=== PATIENT | male | born 1985 | race Caucasian/White ===

== ENCOUNTER 2017-03-06 12:20 | Emergency (ER) | payer OTHER | END 2017-03-06 13:47 | disposition home or self-care (01) | DX: S67.191A Crushing injury of left index finger, initial encounter (principal); X58.XXXA Exposure to other specified factors, initial encounter; Y92.017 Garden or yard in single-family (private) house as the place of occurrence of the external cause; K58.9 Irritable bowel syndrome, unspecified; R03.0 Elevated blood-pressure reading, without diagnosis of hypertension; F17.200 Nicotine dependence, unspecified, uncomplicated ==

== ENCOUNTER 2018-08-12 10:36 | Outpatient (CLI) | payer OTHER ==
[2018-08-12] MEDS ORDERED: IOTHALAMATE MEGLUMINE 50 ML VIAL ONE (11:41)
[2018-08-12] MEDS ORDERED: GADOPENTETATE DIMEGLUMINE 5 ML VIAL IVP ONE (11:41)
--- NOTE | 2018-08-14 11:04 | MRI Report ---
Reason: PAIN LEFT KNEE Procedure Date: 08/12/2018 Accession Number: [id number] / [id number] Procedure: MRI - Knee LT W/O CPT Code: FULL RESULT: EXAM: LEFT KNEE MRI WITHOUT CONTRAST EXAM DATE: 08/12/2018 12:41 PM. CLINICAL HISTORY: Pain left knee. COMPARISON: None. TECHNIQUE: Multiplanar, multisequence T1-weighted and fluid-sensitive sequences of the knee without contrast. Other: None. FINDINGS: Bones: No fractures or subluxations. No marrow edema. No bone lesions. Articular Cartilage: Focal full-thickness defect lateral patellar facet articular cartilage (image 22 series 401). The trochlear groove articular cartilage is unremarkable. The tibiofemoral compartment articular cartilage is negative for fluid signal defect. Mild chondromalacia medial tibiofemoral compartment. Medial Meniscus: The medial meniscus is intact. Lateral Meniscus: The lateral meniscus is intact. Cruciate Ligaments: The anterior and posterior cruciate ligaments are intact. Collateral Ligaments: The medial collateral and lateral collateral ligamentous structures are intact. Tendons: The quadriceps, patellar, semimembranosus, and popliteus tendons are unremarkable. Musculature: No edema or fatty atrophy. Other: Small lateral patellar recess fluid. No popliteal cyst. No loose bodies. The medial and lateral retinacula are intact. The subcutaneous tissues and fat pads are unremarkable. IMPRESSION: 1. Negative for meniscus tear or internal derangement. 2. Focal cleft or full-thickness articular cartilage defect lateral patellar facet. [facility]CULOS[facility] SECTION
== END 2018-08-12 10:37 | disposition home or self-care (01) ==
LOC: DI 10:36
PROVIDERS: ATTEND General Practice
DX: M25.562 Pain in left knee (principal)

== ENCOUNTER 2018-08-19 10:14 | Emergency (ER) | payer OTHER ==
[2018-08-19 10:50] VITALS: BP 117/66
== END 2018-08-19 11:26 | disposition left against medical advice (07) ==
LOC: ED 10:14
DX: Z53.21 Procedure and treatment not carried out due to patient leaving prior to being seen by health care provider (principal)

== ENCOUNTER 2018-11-08 22:22 | Emergency (ER) | payer OTHER ==
[2018-11-08 22:39] VITALS: BP 131/92
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
[2018-11-08] MEDS ORDERED: CYCLOBENZAPRINE 10 MG Prepack 2 PO PRN (23:22)
== END 2018-11-08 23:30 | disposition home or self-care (01) ==
LOC: ED 22:22
DX: S39.012A Strain of muscle, fascia and tendon of lower back, initial encounter (principal); V89.2XXA Person injured in unspecified motor-vehicle accident, traffic, initial encounter; F17.200 Nicotine dependence, unspecified, uncomplicated
CPT/HCPCS: 99282; 99283

== ENCOUNTER 2019-10-22 01:13 | Emergency (ER) | payer OTHER ==
[2019-10-22 01:41] LABS: BASOPHILS % (AUTO) 0.3 %; EOSINOPHILS # (AUTO) 0.1 10^3/uL (0.0-0.7); HGB - HEMOGLOBIN 16.5 g/dL (14.0-18.0); LYMPHOCYTES # (AUTO) 1.7 10^3/uL (1.5-3.5); LYMPHOCYTES % (AUTO) 13.7 %; MEAN CORPUSCULAR HEMOGLOBIN 31.4 pg (27.0-31.0); MEAN CORPUSCULAR HGB CONC 33.5 g/dL (32.0-36.0); MEAN CORPUSCULAR VOLUME 93.5 fL (80.0-94.0); MONOCYTES # (AUTO) 1.4 10^3/uL (0.0-1.0); MONOCYTES % (AUTO) 11.3 %; NEUTROPHILS % (AUTO) 73.3 %; PLT - PLATELET COUNT 248 10^3/uL (130-450); RED BLOOD COUNT 5.26 10^6/uL (4.70-6.10); RED CELL DISTRIBUTION WIDTH 12.7 % (12.0-15.0); WHITE BLOOD COUNT 12.3 x10^3/uL (4.8-10.8)
[2019-10-22] MEDS ORDERED: MORPHINE 2 MG/ML CARPUJECT IVP STA (01:48)
[2019-10-22] MEDS ORDERED: ONDANSETRON 4 MG/2 ML VIAL IVP STA (01:48)
[2019-10-22 02:01] LABS: ALBUMIN 3.9 g/dL (3.2-5.5); ALBUMIN/GLOBULIN RATIO 1.2 (1.0-2.2); BILIRUBIN,TOTAL 1.1 mg/dL (0.2-1.0); CALCIUM 8.7 mg/dL (8.5-10.3); CREATININE 0.9 mg/dL (0.6-1.2); TOTAL PROTEIN 7.2 g/dL (6.7-8.2)
[2019-10-22] MEDS ORDERED: HYDROmorphone 1 MG/ML CARPUJECT IVP STA (02:26)
[2019-10-22 02:35] LABS: BILIRUBIN,URINE NEGATIVE (NEGATIVE); GLUCOSE, URINE (UA) NEGATIVE (NEGATIVE); KETONES,URINE (UA) NEGATIVE (NEGATIVE); LEUKOCYTE ESTERASE, URINE NEGATIVE (NEGATIVE); NITRITE,URINE NEGATIVE (NEGATIVE); OCCULT BLOOD,URINE NEGATIVE (NEGATIVE); PROTEIN,URINE NEGATIVE (NEGATIVE); UROBILINOGEN,URINE 0.2 (NORMAL) E.U./dL (NORMAL)
[2019-10-22 02:36] LABS: CLARITY,URINE CLEAR (CLEAR)
[2019-10-22] MEDS ORDERED: IOVERSOL 320 100 ML VIAL IVP ONE ×2 (02:44→03:26)
--- NOTE | 2019-10-22 02:55 | ED Physician Documentation ---
PD HPI ABD PAIN - Stated complaint Stated Complaint: ABD PX - Chief complaint Chief Complaint: Abd Pain - History obtained from History obtained from: Patient, Family Review of Systems Ten Systems: 10 systems reviewed and negative Constitutional: denies: Fever Nose: reports: Reviewed and negative Throat: reports: Reviewed and negative GI: reports: Abdominal Pain, Nausea. denies: Abdominal Swelling, Vomiting, Constipation, Diarrhea, Hematemesis, Bloody / black stool : reports: Reviewed and negative. denies: Dysuria, Hematuria Skin: reports: Reviewed and negative Musculoskeletal: denies: Back pain Neurologic: reports: Reviewed and negative Endocrine: reports: Reviewed and negative Immunocompromised: reports: Reviewed and negative PD PAST MEDICAL HISTORY - Past Medical History Past Medical History: Yes Cardiovascular: None Respiratory: None Neuro: None Endocrine/Autoimmune: None GI: Other : None HEENT: None Psych: None Musculoskeletal: None Derm: None - Past Surgical History Past Surgical History: No - Present Medications Home Medications: Ambulatory Orders Medication Instructions Recorded Confirmed Loperamide [Imodium] 2 mg PO QID PRN 02/01/16 03/06/17 Cyclobenzaprine [Flexeril] 10 mg PO TID PRN #20 tablet 11/08/18 Hydrocodone/Acetaminophen 1 - 2 each PO Q6H PRN #14 tablet 10/22/19 [Hydrocodon-Acetaminophen 5-325] Ondansetron Odt [Zofran] 4 mg TL Q6H PRN #10 tablet 10/22/19 - Allergies Allergies/Adverse Reactions: Allergies Allergy/AdvReac Type Severity Reaction Status Date / Time No Known Drug Allergies Allergy Verified 10/22/19 01:20 - Social History Does the pt smoke?: Yes Smoking Status: Current every day smoker Does the pt drink ETOH?: Yes Does the pt have substance abuse?: No - Immunizations Immunizations are current?: Yes - POLST Patient has POLST: No PD ED PE NORMAL - Vitals Vital signs reviewed: Yes - General General: Alert and oriented X 3, Well developed/nourished, Other (appears uncomfortable) - HEENT HEENT: Atraumatic, Moist mucous membranes, Pharynx benign - Neck Neck: Supple, no meningeal sign, No JVD - Cardiac Cardiac: RRR, No murmur, No gallop, No rub, Strong equal pulses - Respiratory Respiratory: No respiratory distress, Clear bilaterally - Abdomen Abdomen: Soft, Non distended - Male Male : Deferred - Rectal Rectal: Deferred - Derm Derm: Normal color, No rash - Extremities Extremities: No deformity, No edema - Neuro Neuro: Alert and oriented X 3, Normal speech Eye Opening: Spontaneous Motor: Obeys Commands Verbal: Oriented GCS Score: 15 - Psych Psych: Normal mood, Normal affect PD ED PE EXPANDED - Abdomen Abdomen: Tender to palpation (mild diffuse tenderness ). No: Rebound, Guarding Results - Vitals Vitals: Vital Signs - 24 hr 10/22/19 10/22/19 10/22/19 01:15 03:19 04:13 Temperature 37.1 C 37.0 C Heart Rate 96 88 80 Respiratory 16 14 16 Rate Blood Pressure 126/65 135/72 H 127/78 O2 Saturation 97 98 97 Oxygen O2 Source Room air - Labs Labs: Laboratory Tests 10/22/19 10/22/19 10/22/19 01:30 01:40 02:25 WBC 12.3 H RBC 5.26 Hgb 16.5 Hct 49.2 MCV 93.5 MCH 31.4 H MCHC 33.5 RDW 12.7 Plt Count 248 MPV 10.0 Neut # (Auto) 9.0 H Lymph # (Auto) 1.7 [place] # (Auto) 1.4 H Eos # (Auto) 0.1 Baso # (Auto) 0.0 Absolute Nucleated RBC 0.00 Nucleated RBC % 0.0 Sodium 138 Potassium 4.3 Chloride 103 Carbon Dioxide 29 Anion Gap 6.0 BUN 13 Creatinine 0.9 Estimated GFR (MDRD) 95 Glucose 125 H Calcium 8.7 Total Bilirubin 1.1 H AST 15 ALT 32 Alkaline Phosphatase 61 Total Protein 7.2 Albumin 3.9 Globulin 3.3 Albumin/Globulin Ratio 1.2 Lipase 53 H Urine Color YELLOW Urine Clarity CLEAR Urine pH 6.0 Ur Specific [place] <=1.005 Urine Protein NEGATIVE Urine Glucose (UA) NEGATIVE Urine Ketones NEGATIVE Urine Occult Blood NEGATIVE Urine Nitrite NEGATIVE Urine Bilirubin NEGATIVE Urine Urobilinogen 0.2 (NORMAL) Ur Leukocyte Esterase NEGATIVE Ur Microscopic Review NOT INDICATED Urine Culture Comments NOT INDICATED - Rads (name of study) CT abd/pelvis Radiology: Final report received, See rad report PD MEDICAL DECISION MAKING - ED course Complexity details: reviewed results, re-evaluated patient, considered differential, d/w patient, d/w family ED course: ddx- cholelithiasis, cholecystitis, pancreatitis, gastritis, colitis, diverticulitis, appendicitis 34 y/o M with hx and exam as documented. Mild diffuse tenderness of abdomen, appears uncomfortable despite morphine and antiemetics. Labs are stable except mild leukocytosis. Obtained CT abd which shows pancreatitis despite a normal lipase. No RUQ tenderness to suggest gallstones. Pain is controlled here and he is tolerating pO thus will continue supportive care at home and advised a low fat diet. PT was given return precautions if worsening or new concerning symptoms. Departure - Departure Disposition: , Self Care Clinical Impression: Pancreatitis Qualifiers: Chronicity: acute Pancreatitis type: unspecified pancreatitis type Acute pancreatitis complication: no infection or necrosis Qualified Code(s): K85.90 - Acute pancreatitis without necrosis or infection, unspecified Condition: Stable Record reviewed to determine appropriate education?: Yes Instructions: ED Pancreatitis Follow-Up: your, doctor [Other] - As Needed Prescriptions: Hydrocodone/Acetaminophen [Hydrocodon-Acetaminophen 5-325] 1 - 2 each PO Q6H PRN #14 tablet PRN Reason: pain Ondansetron Odt [Zofran] 4 mg TL Q6H PRN #10 tablet PRN Reason: Nausea / Vomiting Comments: Your labs today were normal. Your CT scan shows pancreatitis. Take ibuprofen as needed for pain and vicodin if pain is severe. You can use zofran for nausea. Advance your diet slowly and avoid fatty foods until your symptoms resolve. Discharge Date/Time: 10/22/19 04:13
--- NOTE | 2019-10-22 03:58 | CT Report ---
Reason: abdominal pain, nausea, diffuse tenderness Procedure Date: 10/22/2019 Accession Number: [id number] / [id number] Procedure: CT - Abdomen/Pelvis W CPT Code: Final Report FULL RESULT: EXAM: CT ABDOMEN AND PELVIS EXAM DATE: 10/22/2019 03:27 AM. CLINICAL HISTORY: Abdominal pain, nausea, diffuse tenderness. COMPARISONS: None. TECHNIQUE: Routine helical CT imaging was performed through the abdomen and pelvis. IV contrast: OPTI 320 100ML. Enteric contrast: No. Reconstructions: Coronal and sagittal. In accordance with CT protocol optimization, one or more of the following dose reduction techniques were utilized for this exam: automated exposure control, adjustment of mA and/or KV based on patient size, or use of iterative reconstructive technique. FINDINGS: Bibasilar dependent atelectasis is seen. The visible heart is normal in size. There is no pericardial effusion. A 9 mm hypodense lesion is seen in the right hepatic lobe (series 3, image 35). This is too small to characterize. The liver is otherwise normal in appearance. The gallbladder is normal. No intrahepatic or extrahepatic biliary dilatation is seen. The spleen, and adrenal glands are within normal limits. There is fat stranding surrounding the distal body and tail of the pancreas with minimal free fluid extending into the left paracolic gutter. No loculated fluid collection is seen. The proximal pancreas is normal in appearance. The kidneys are normal. There is no hydronephrosis. The intestines are normal in caliber and position. The appendix is normal. No free intraperitoneal air is seen. There is no ascites. The abdominal aorta is normal in course and caliber. Minimal atherosclerotic plaque calcifications are seen. Innumerable subcentimeter mesenteric lymph nodes are seen without evidence of lymphadenopathy. The bladder is normal. The prostate gland is normal. No free pelvic fluid is seen. No suspicious lytic or blastic lesions are seen. A bone island is incidentally seen in the right acetabular roof. Minimal degenerative changes are seen in the thoracolumbar spine. There is minimal retrolisthesis at L5-S1. IMPRESSION: 1. Fat stranding consistent with edema surrounding the distal body and tail of the pancreas with minimal associated free fluid consistent with pancreatitis. There is no evidence of abscess or pseudocyst formation. 2. Small right hepatic hypoattenuating lesion, which is too small to characterize. [facility]
[2019-10-22 04:13] VITALS: BP 127/78
== END 2019-10-22 04:13 | disposition home or self-care (01) ==
LOC: ED 01:13
DX: K85.90 Acute pancreatitis without necrosis or infection, unspecified (principal); F17.200 Nicotine dependence, unspecified, uncomplicated
CPT/HCPCS: 36415; 74177; 80053; 81003; 83690; 85025; 96374; 96375; 99284; J1170; Q9967; 81001; 87086